=== PATIENT | female | born 1950 | race African-American/Black ===

== ENCOUNTER 2018-11-30 10:53 | Emergency (ER) | payer MEDICARE ==
[~2018-11-30] VITALS: Ht 144.8 cm; Wt 58.0 kg
[2018-11-30] MEDS ORDERED: MORPHINE SULFATE 4 MG/ML CPJ (NOT FOR IM USE) IV ONE (12:45)
[2018-11-30 14:04] VITALS: BP 138/76
== END 2018-11-30 14:07 | disposition home or self-care (01) ==
LOC: ER 10:53
DX: M19.011 Primary osteoarthritis, right shoulder (principal); Z87.891 Personal history of nicotine dependence
CPT/HCPCS: 73030; 96374; 99283; J2270